=== PATIENT | female | born 1975 | race Caucasian/White ===

== ENCOUNTER 2018-12-02 17:18 | Observation (INO) ==
[2018-12-02 17:54] LABS: Urine Bilirubin Negative (NEGATIVE); Urine Blood Negative /ul (NEGATIVE); Urine Ketone Negative (NEGATIVE); Urine Nitrite Negative (NEGATIVE); Urine Protein Negative (NEGATIVE); Urine Specific Gravity 1.015 SP.GR. (1.005-1.010); Urine Urobilinogen Normal (NORMAL); Urine pH 7.5 pH (5.0-7.0)
[2018-12-02 18:03] LABS: Urine Appearance Clear (CLEAR); Urine Color Yellow; Urine RBC None Seen /hpf (0-5); Urine WBC TRACE /hpf (0-5)
[2018-12-02 18:04] LABS: Urine Bacteria 1+
--- NOTE | 2018-12-02 18:46 | ERNOTE ---
Abdominal HPI - Narrative Date of Service: 12/02/18 - General Chief Complaint: Abdominal Pain Time Seen by Provider: 12/02/18 18:37 Source: patient Exam Limitations: no limitations - Immun/Allergies/Home Medications Immunizatons: IMMUNIZATION HX Immunizations Up to Date Yes History of Influenza Vaccine Yes Hx Pneumococcal Vaccination No Allergies/Adverse Reactions: Allergies ciprofloxacin [From Cipro] Allergy (Verified 12/02/18 17:32) gives flu symptoms ciprofloxacin HCl [From Cipro] Allergy (Verified 12/02/18 17:32) gives flus symptoms Home Medications: HOME MEDICATIONS L norgest/E estradiol-E estrad 0.15 mg-30 mcg (84)/10 mcg(7) tabs,3mos 1 tab PO DAILY #91 tab 09/21/18 [Last Taken Unknown] - Pain Score Pain Score #1 Pain Score: 7 Abdominal Pain Onset Location: RLQ Pain Radiation: no radiation - History of Present Illness Narrative: The patient is a 43 year old female who presents for RLQ pain which has been present since yesterday. There are associated symptoms of nausea. The patient reports RLQ pain, 6/10. There are no alleviating factors. There are aggravating factors of activity. Previous treatments have included: none. The past medical history includes: kidney stone. The social history is negative. The patient has had no ill contacts. Patient reports that pain began yesterday and has had abdominal fullness since onset. Patient reports inability to sleep last night due to abdominal discomfort which has gradually worsened since onset. Patient states today increased pain and becoming intolerable with activity. Review of Systems - Review of Systems Constitutional: Present: fatigue. Absent: fever EYE: Present: no symptoms reported ENT: Present: no symptoms reported. Absent: ear pain, nasal drainage, sore throat Respiratory: Present: no symptoms reported. Absent: shortness of breath, cough Cardiology: Present: no symptoms reported. Absent: chest pain Gastrointestinal/Abdominal: Present: nausea, abdominal pain. Absent: vomiting, diarrhea Genitourinary: Present: no symptoms reported. Absent: frequency, dysuria, decreased urinary output Musculoskeletal: Present: no symptoms reported. Absent: back pain Skin: Present: no symptoms reported. Absent: rash Neurological: Present: no symptoms reported All Other Systems: All systems neg except as marked Medical History (Updated 12/02/18 @ 21:31 by ELSIE Kelly) UTI (urinary tract infection) (Resolved) Onset Date: 01/27/14 Tachycardia (Resolved) Onset Date: 01/24/17 30 day holter monitor WNL Kidney stone (Resolved) Onset Date: ~04/2006 Migraine headache (Chronic) Onset Date: Unknown Hair loss (Resolved) Onset Date: Unknown Cough (Resolved) Onset Date: 01/06/13 Laceration of fourth finger of left hand (Resolved) Onset Date: Unknown History of echocardiogram Onset Date: ~06/2018 Surgical History: Surgical History (Updated 08/13/18 @ 10:16 by Adrianna Valentin RN) [place] teeth extracted (Resolved) Onset Date: ~2015 2000 2015 S/P tubal ligation (Resolved) Onset Date: 09/01/05 S/P LASIK surgery (Resolved) Onset Date: ~11/2010 S/P (Resolved) Onset Date: ~2005 Family History: Family History (Updated 08/18/18 @ 14:13 by Adrianna Valentin RN) Mother Thyroid disease Colon polyp Father Kidney stone Brother Diabetes half brother Grandfather , age 92-prostate ca Cancer paternal-prostate cancer Grandmother Cancer maternal great grandmother-breast Social History: (Last Reviewed 12/02/18 @ 19:10 by ELSIE Kelly) Social History: group home: No Marital status: household members: spouse, children number of children: 2 current occupational status: employed 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 Highest education level completed: Doctoral degree Service: No Tobacco: Smoking Status: Never smoker Alcohol: alcohol intake: current alcohol intake frequency: holiday/special occasion Substance Use: substance use type: does not use Dietary Habits: caffeine: Yes Exercise: Physical activity functional status: normal ROM and activity frequency: 5-6 times per week Personal Safety: victim of physical abuse: No victim of emotional abuse: No Physical Exam - Physical Exam General Appearance: Present: wd/wn, alert, mild distress Head Exam: Present: normal inspection Eye Exam: Normal inspection: bilateral Neck: Present: normal inspection Respiratory: Present: no respiratory distress, normal breath sounds, no accessory muscle use, lungs clear Cardiovascular/Chest: Present: regular rate, rhythm, no murmur Gastrointestinal/Abdominal: Present: nondistended, soft, no organomegaly, tenderness - RLQ, abnormal bowel sounds - hypoactive, guarding - RLQ, rebound - RLQ, McBurney sign, Obturator sign, Psoas sign. Absent: mass Back Exam: Present: CVA tenderness (R) - referred pain to abdomen. Absent: CVA tenderness (L) Neurological Exam: Present: alert, oriented, normal mood/affect, no motor /sensory deficits Skin Exam: Present: normal color, warm/dry Progress - Date and Time Seen: Date and Time: 12/02/18 20:06 Elevation to WBC and CRP, RLQ abdominal pain, will proceed with CT to r/o appendicitis. 12/02/18 21:23 Contacted , instructed to admit patient and start on Mefoxin, will per form surgery at 0700 tomorrow. - Results and Orders Patient's Lab Results:: I have reviewed the patient's lab results. - Vital Signs Patient's Vital Signs:: I have reviewed the patient's vital signs. Vital Signs: Vital Signs 12/02/18 17:27 Temperature 36.1 C Pulse Rate 89 Respiratory Rate 16 Blood Pressure 95/68 O2 Sat by Pulse Oximetry 93 - CT/Ultrasound CT/Ultrasound Narrative: IMPRESSION: 1. Findings consistent with acute appendicitis. No fluid collection. No free intraperitoneal air. 2. Small amount of free pelvic fluid. 3. Hepatomegaly. Electronically signed by Jaye Moss D.O.. - Progress/Reassessment Chief Complaint: Abdominal Pain Progress:: Improved Departure Clinical Impression: Acute appendicitis Qualifiers: Acute appendicitis type: with localized peritonitis Appendicitis gangrene presence: unspecified whether gangrene present Appendicitis perforation presence: unspecified whether perforation present Appendicitis abscess presence: unspecified whether abscess present Qualified Code(s): K35.30 - Acute appendicitis with localized peritonitis, without perforation or gangrene - Departure Disposition: Still a patient Condition: Stable
[2018-12-02 18:53] LABS: Hematocrit 40.4 % (37.0-47.0); Hemoglobin 13.7 gm/dL (12.5-16.0); Mean Cell Volume 94.2 fl (78-100); Mean Corpuscular Hemoglobin 31.9 pg (27-31); Mean Corpuscular Hgb Conc 33.9 g/dl (32-36); Mean Platelet Volume 9.4 fl (8-12.5); Neutrophil # 13.5 K/mm3 (1.3-6.0); Neutrophil % 83.1 % (42-75.0); Platelet Count 280 K/mm3 (150-450); Red Blood Count 4.29 M/mm3 (4.2-5.4); Red Cell Distribution Width 11.9 % (11.5-14.0); White Blood Count 16.3 K/mm3 (4.0-10.5)
[2018-12-02] MEDS ORDERED: DIATRIZOATE MEGLUMINE, SODIUM 30 ML BTL PO ONE (18:58)
[2018-12-02 19:08] LABS: Albumin * 3.5 gm/dl (3.4-5.0); BUN/Creatinine Ratio 18.8 (9.0-21.6); Bilirubin, Total 0.3 mg/dL (0.0-1.1); Ca. Corrected For Albumin 8.8 mg/dL (8.4-10.2); Calcium * 8.7 mg/dL (7.9-10.9); Carbon Dioxide 27.4 mmol/L (24-32.6); Potassium 4.4 mmol/L (3.4-4.6); Total Protein 7.2 gm/dL (6.2-8.2)
[2018-12-02] MEDS ORDERED: ONDANSETRON HCL/PF 2 MG/ML VIAL IV ONE (21:02)
[2018-12-02] MEDS ORDERED: KETOROLAC TROMETHAMINE 30 MG/ML VIAL IV ONE (21:02)
[2018-12-02] MEDS ORDERED: NORMAL SALINE 1,000 ML IV PRN (21:33)
[2018-12-02] MEDS ORDERED: ONDANSETRON HCL/PF 2 MG/ML VIAL IV PRN (21:35)
[2018-12-02] MEDS ORDERED: CEFOXITIN SODIUM 2 GM in DEXTROSE 5 % IN WATER 100 ML IV ONE ×2 (22:00)
[2018-12-02] MEDS ORDERED: FLU VACC QS2019-20(6MOS UP)/PF 60 MCG/0.5 ML SYRINGE IM ONE (22:47)
[2018-12-02] MEDS: MORPHINE SULFATE 2 MG/ML DISP.SYRIN IV PRN (23:35)
[2018-12-03] MEDS ORDERED: HYDROcodone/ACETAMINOPHEN 1 EACH TABLET PO PRN (06:17)
[2018-12-03] MEDS ORDERED: IBUPROFEN 800 MG TABLET PO PRN (06:17)
--- NOTE | 2018-12-03 06:17 | HP ---
Chief Complaint - Chief Complaint Date of Service: 12/03/18 Time of Service: 06:12 Chief Complaint: acute appendicitis History of Present Illness: Monse is a pleasant 43-year-old female who developed abdominal pain the day before yesterday. She thought that the pain would get better if she went to sleep. She awoke and the pain continued to worsen. She has not had pain like this before. She went to the emergency room, she was found to have acute appendicitis. She has had nausea but no vomiting. She was admitted overnight for pain control and will be taken to the OR shortly for appendectomy. She does have a history of previous section x2. She developed an infection after her first . Medical History (Updated 12/02/18 @ 21:31 by ELSIE Kelly) UTI (urinary tract infection) (Resolved) Onset Date: 01/27/14 Tachycardia (Resolved) Onset Date: 01/24/17 30 day holter monitor WNL Kidney stone (Resolved) Onset Date: ~04/2006 Migraine headache (Chronic) Onset Date: Unknown Hair loss (Resolved) Onset Date: Unknown Cough (Resolved) Onset Date: 01/06/13 Laceration of fourth finger of left hand (Resolved) Onset Date: Unknown History of echocardiogram Onset Date: ~06/2018 Surgical History: Surgical History (Updated 08/13/18 @ 10:16 by Adrianna Valentin RN) [place] teeth extracted (Resolved) Onset Date: ~2015 2000 2015 S/P tubal ligation (Resolved) Onset Date: 09/01/05 S/P LASIK surgery (Resolved) Onset Date: ~11/2010 S/P (Resolved) Onset Date: ~2005 Family History: Family History (Updated 08/18/18 @ 14:13 by Adrianna Valentin RN) Mother Thyroid disease Colon polyp Father Kidney stone Brother Diabetes half brother Grandfather , age 92-prostate ca Cancer paternal-prostate cancer Grandmother Cancer maternal great grandmother-breast Social History: (Last Reviewed 12/02/18 @ 22:12 by Yaneli Kenny RN) Social History: intermediate: No Marital status: household members: spouse, children number of children: 2 current occupational status: employed 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 Highest education level completed: Doctoral degree Service: No Tobacco: Smoking Status: Never smoker Alcohol: alcohol intake: current alcohol intake frequency: holiday/special occasion Substance Use: substance use type: does not use Dietary Habits: caffeine: Yes Exercise: Physical activity functional status: normal ROM and activity frequency: 5-6 times per week Personal Safety: victim of physical abuse: No victim of emotional abuse: No Review Of Systems (GEN) - Review of Systems Generalized/Overall Review: Present: Malaise EENTM: Present: No Symptoms Reported Respiratory: Present: No Symptoms Reported Cardiac: Present: No Symptoms Reported Abdominal: Present: Nausea, Abdominal Pain Genitourinary: Present: No Symptoms Reported Musculoskeletal: Present: No Symptoms Reported Neurological: Present: No Symptoms Reported Skin: Present: No Symptoms Reported Endocrine: Present: No Symptoms Reported Immunizations: IMMUNIZATION HX Immunizations Up to Date Yes History of Influenza Vaccine Yes Hx Pneumococcal Vaccination No Allergies/Adverse Reactions: Allergies Allergy/AdvReac Type Severity Reaction Status Date / Time ciprofloxacin [From Cipro] Allergy gives flu Verified 12/02/18 22:13 symptoms ciprofloxacin HCl Allergy gives flus Verified 12/02/18 22:13 [From Cipro] symptoms Home Medications: HOME MEDICATIONS L norgest/E estradiol-E estrad 0.15 mg-30 mcg (84)/10 mcg(7) tabs,3mos 1 tab PO DAILY #91 tab 09/21/18 [Last Taken Unknown] Exam - Exam Vital Signs: Vital Signs - Last Taken Temp 37 C 12/03/18 05:02 Pulse 83 12/03/18 05:02 Resp 14 12/03/18 05:02 BP 95/47 12/03/18 05:02 Pulse Ox 97 12/03/18 05:02 Constitutional: Present: Alert, Oriented x3, Cooperative ENT Exam: Present: hearing grossly normal Eye Exam: bilateral eye: normal inspection Neck: Present: supple Breasts: Present: Exam deferred Respiratory: Present: lungs clear, normal breath sounds Cardiovascular/Chest: Present: regular rate, rhythm Abdomen: Present: soft, nontender, hernia - Umbilical. Absent: guarding, rigidity /Rectal: Present: Exam deferred Extremity: Present: normal range of motion Skin Exam: Present: normal color Neurologic: Present: working supervisor II-XII nml as tested Appearance: Present: appropriate appearance Eye contact: Present: cooperative, good eye contact Thoughts: Present: normal thought pattern Diagnostic Studies: Abnormal Lab Results 12/02/18 12/02/18 12/02/18 Range/Units 17:39 18:15 18:45 WBC (4.0-10.5) K/mm3 MCH (27-31) pg Immature Gran % (Auto) (0.001-0.429) % Immature Gran # (Auto) (0.000-0.0310) K/mm3 Neutrophils % (42-75.0) % Lymphocytes % (20-51) % Neutrophils # (1.3-6.0) K/mm3 ALT 9 L (19-67) U/L C-Reactive Prot, Quant 10.0 H (0.0-0.9) mg/dL Ur Leukocyte Esterase 25 H (NEGATIVE) /ul Urine WBC Trace H (0-5) /hpf Ur Epithelial Cells 10-25 H (0-5) /hpf Urine Bacteria 1+ H (NONE) 12/02/18 Range/Units 18:50 WBC 16.3 H (4.0-10.5) K/mm3 MCH 31.9 H (27-31) pg Immature Gran % (Auto) 0.50 H (0.001-0.429) % Immature Gran # (Auto) 0.08 H (0.000-0.0310) K/mm3 Neutrophils % 83.1 H (42-75.0) % Lymphocytes % 10.0 L (20-51) % Neutrophils # 13.5 H (1.3-6.0) K/mm3 ALT (19-67) U/L C-Reactive Prot, Quant (0.0-0.9) mg/dL Ur Leukocyte Esterase (NEGATIVE) /ul Urine WBC (0-5) /hpf Ur Epithelial Cells (0-5) /hpf Urine Bacteria (NONE) Laboratory Results WBC 16.3 K/mm3 (4.0-10.5) H 12/02/18 18:50 RBC 4.29 M/mm3 (4.2-5.4) 12/02/18 18:50 Hgb 13.7 gm/dL (12.5-16.0) 12/02/18 18:50 Hct 40.4 % (37.0-47.0) 12/02/18 18:50 MCV 94.2 fl (78-100) 12/02/18 18:50 MCH 31.9 pg (27-31) H 12/02/18 18:50 MCHC 33.9 g/dl (32-36) 12/02/18 18:50 RDW 11.9 % (11.5-14.0) 12/02/18 18:50 Plt Count 280 K/mm3 (150-450) 12/02/18 18:50 MPV 9.4 fl (8-12.5) 12/02/18 18:50 Immature Gran % (Auto) 0.50 % (0.001-0.429) H 12/02/18 18:50 Immature Gran # (Auto) 0.08 K/mm3 (0.000-0.0310) H 12/02/18 18:50 83.1 % (42-75.0) H 12/02/18 18:50 10.0 % (20-51) L 12/02/18 18:50 5.5 % (0.0-9) 12/02/18 18:50 0.7 % (0.0-3.0) 12/02/18 18:50 0.2 % (0.0-1.0) 12/02/18 18:50 Nucleated RBC % 0.0 k/mm3 (0-1) 12/02/18 18:50 13.5 K/mm3 (1.3-6.0) H 12/02/18 18:50 1.63 k/mm3 (1.5-3.5) 12/02/18 18:50 0.9 k/mm3 (0.0-1.0) 12/02/18 18:50 0.1 k/mm3 (0.0-0.7) 12/02/18 18:50 Absolute Basophils 0.0 k/mm3 (0.0-0.1) 12/02/18 18:50 Sodium 139 mmol/L (132-142) 12/02/18 18:45 139 mmol/L (130-142) 12/02/18 18:45 Potassium 4.4 mmol/L (3.4-4.6) 12/02/18 18:45 Chloride 104 mmol/L (97-106) 12/02/18 18:45 Carbon Dioxide 27.4 mmol/L (24-32.6) 12/02/18 18:45 12.0 mmol/L (6.8-13.8) 12/02/18 18:45 BUN 16 mg/dL (3-23) 12/02/18 18:45 0.85 mg/dL (0.4-1.4) 12/02/18 18:45 Est GFR (Non-Af Amer) 78 mL/min (60-130) 12/02/18 18:45 18.8 (9.0-21.6) 12/02/18 18:45 94 mg/dL (70-110) 12/02/18 18:45 Calcium 8.7 mg/dL (7.9-10.9) 12/02/18 18:45 Calcium Adj for Albumin 8.8 mg/dL (8.4-10.2) 12/02/18 18:45 0.3 mg/dL (0.0-1.1) 12/02/18 18:45 AST 12 U/L (0-48) 12/02/18 18:45 ALT 9 U/L (19-67) L 12/02/18 18:45 52 U/L (50-170) 12/02/18 18:45 C-Reactive Prot, Quant 10.0 mg/dL (0.0-0.9) H 12/02/18 18:15 7.2 gm/dL (6.2-8.2) 12/02/18 18:45 3.5 gm/dl (3.4-5.0) 12/02/18 18:45 Amylase 40 U/L (25-115) 12/02/18 18:45 112 U/L (73-393) 12/02/18 18:45 Yellow 12/02/18 17:39 Clear (CLEAR) 12/02/18 17:39 7.5 pH (5.0-7.0) 12/02/18 17:39 Ur Specific [place] 1.015 SP.GR. (1.005-1.010) 12/02/18 17:39 Negative mg/dL (NEGATIVE) 12/02/18 17:39 Negative mg/dL (NEGATIVE) 12/02/18 17:39 Negative mg/dL (NEGATIVE) 12/02/18 17:39 Negative /ul (NEGATIVE) 12/02/18 17:39 Negative (NEGATIVE) 12/02/18 17:39 Negative mg/dl (NEGATIVE) 12/02/18 17:39 Normal EU/dl (NORMAL) 12/02/18 17:39 Ur Leukocyte Esterase 25 /ul (NEGATIVE) H 12/02/18 17:39 None seen /hpf (0-5) 12/02/18 17:39 Trace /hpf (0-5) H 12/02/18 17:39 Ur Epithelial Cells 10-25 /hpf (0-5) H 12/02/18 17:39 1+ (NONE) H 12/02/18 17:39 Culture to follow 12/02/18 17:39 Urine HCG, Qual Negative (NEGATIVE) 12/02/18 18:45 Assessment/Plan - Narrative Narrative: We will plan to go to the OR for laparoscopic possible open appendectomy. Risks and benefits of the procedure were discussed with the patient and she voices understanding. She has no questions or concerns. - Assessment/Plan (1) Acute appendicitis Problem: Acute Qualifiers: Acute appendicitis type: with localized peritonitis Appendicitis gangrene presence: unspecified whether gangrene present Appendicitis perforation presence: unspecified whether perforation present Appendicitis abscess presence: unspecified whether abscess present Qualified Code(s): K35.30 - Acute appendicitis with localized peritonitis, without perforation or gangrene
[2018-12-03] MEDS ORDERED: POTASSIUM CHLORIDE 20 MEQ in DEXTROSE 5%-0.5 NORMAL SALINE 990 ML IV SCH (06:30)
[2018-12-03] MEDS: MORPHINE SULFATE 2 MG/ML DISP.SYRIN IV PRN ×3 (06:40→11:02)
--- NOTE | 2018-12-03 06:51 | ANES ---
Anesthesia Pre Procedure Eval Vitals/Labs: Last Vital Signs Temp 37 C 12/03/18 05:02 Pulse 83 12/03/18 05:02 Resp 14 12/03/18 05:02 BP 95/47 12/03/18 05:02 Pulse Ox 97 12/03/18 05:02 HOME MEDICATIONS L norgest/E estradiol-E estrad 0.15 mg-30 mcg (84)/10 mcg(7) tabs,3mos 1 tab PO DAILY #91 tab 09/21/18 [Last Taken Unknown] Allergies/Adverse Reactions: Allergies Allergy/AdvReac Type Severity Reaction Status Date / Time ciprofloxacin [From Cipro] Allergy gives flu Verified 12/02/18 22:13 symptoms ciprofloxacin HCl Allergy gives flus Verified 12/02/18 22:13 [From Cipro] symptoms - Planned Procedure Planned Procedure: ACUTE APPENDICITIS Medication List Reviewed:: Yes Allergies Verified: Yes Medical History (Updated 12/03/18 @ 06:17 by Ale Purdy DO) UTI (urinary tract infection) (Resolved) Onset Date: 01/27/14 Tachycardia (Resolved) Onset Date: 01/24/17 30 day holter monitor WNL Kidney stone (Resolved) Onset Date: ~04/2006 Migraine headache (Chronic) Onset Date: Unknown Hair loss (Resolved) Onset Date: Unknown Cough (Resolved) Onset Date: 01/06/13 Laceration of fourth finger of left hand (Resolved) Onset Date: Unknown History of echocardiogram Onset Date: ~06/2018 Surgical History (Updated 12/03/18 @ 06:17 by Ale Purdy DO) [place] teeth extracted (Resolved) Onset Date: ~2015 2000 2015 S/P tubal ligation (Resolved) Onset Date: 09/01/05 S/P LASIK surgery (Resolved) Onset Date: ~11/2010 S/P (Resolved) Onset Date: ~2005 Family History (Updated 08/18/18 @ 14:13 by Adrianna Valentin RN) Mother Thyroid disease Colon polyp Father Kidney stone Brother Diabetes half brother Grandfather , age 92-prostate ca Cancer paternal-prostate cancer Grandmother Cancer maternal great grandmother-breast - Family Anesthesia History Family History:: no untoward family reactions to anesthesia, no familial b leeding tendencies, no family history of clotting disorders, no family history of premature - Airway/Neck/Teeth Within Normal Limits:: Yes Teeth Condition: intact Neck Exam: full range of motion Mallampatti Score: 2 Thyromental (T-M) distance: > 6 cm Mandibulo Hyoid distance: > 3 cm - Respiratory Respiratory Physical: lungs clear Smoking Status: Never smoker Sleep Apnea currently treated: No Sleep Apnea by current assessment: No - Cardiovascular Tolerate Activity: Good Heart Sounds: S1 & S2, Regular, Murmur - Anesthesia Assessment and Plan ASA Class: PS, II, E Anesthesia Type Plan: General ET
[2018-12-03] MEDS ORDERED: CEFOXITIN SODIUM 2 GM in DEXTROSE 5 % IN WATER 100 ML IV ONE ×2 (07:09)
[2018-12-03] MEDS ORDERED: RINGER'S SOLUTION,LACTATED 1,000 ML IV PRN (07:43)
[2018-12-03] MEDS ORDERED: BUPIVACAINE HCL 50 ML VIAL IJ ONE (07:51)
--- NOTE | 2018-12-03 08:06 | OR ---
Operative Report - Dictated Report Narrative: Date of Service: 12/03/18 Procedure: laparoscopic appendectomy Pre-procedure diagnosis: acute appendicitis Post-procedure diagnosis: same Surgeon: Dr. Ale Purdy Anesthesia: general Indication for procedure: Monse is a pleasant 43-year-old female with acute appendicitis. Description of procedure: After appropriate informed consent was obtained patient was taken to the operating room, placed in the supine position. General anesthesia was achieved. The RN placed a Cadena catheter. The patient was prepped and draped in the usual sterile fashion. A 5 mm periumbilical incision was made, hemostat was used to dissect down to the fascia. A Veress needle was inserted, a saline drop test was performed which was satisfactory. The abdomen was insufflated to 15 mmHg. A 5mm blunt trocar was placed at the umbilicus. The camera was inserted, there was no evidence of a trocar injury. A 12 mm trocar was placed in the left lower quadrant of the abdomen. A 5 mm trocar was placed in the suprapubic region. The patient was placed in a head down, rotated left position, to facilitate exposure. The appendix was identified, it appeared consistent with acute appendicitis. A window was made in the mesoappendix. The 45 mm echelon stapler with the white load was placed across the base of the appendix. There was good hemostasis. The echelon 45 mm stapler with a white load was then placed across the mesoappendix. There was good hemostasis. The appendix was removed through an Endo Catch bag. The abdomen was inspected and the staple lines were intact, with good hemostasis. The remainder of the abdomen was inspected and was satisfactory. The 12 mm trocar site was closed with an 0 Vicryl suture using a PMI device. The abdomen was desufflated. Local anesthetic was injected. The incisions were closed with inverted interrupted 4- 0 Monocryl sutures. Mastisol and Steri-Strips were applied. The patient tolerated the procedure well and was transported to the PACU in satisfactory condition. Estimated blood loss: minimal Complications: none Specimens to pathology: appendix Disposition: The patient will be admitted to the floor for observation.
--- NOTE | 2018-12-03 08:12 | ANES ---
Post Anesthesia Discharge - Transfer of Care Transfer of Care handoff given to nurse: Yes - Discharge from PACU Discharge from PACU when meets criteria: Yes - Comfortble
--- NOTE | 2018-12-03 08:29 | ANES ---
Post Anesthesia Assessment - Vital Signs Vitals: Last Vital Signs Temp 36.8 C 12/03/18 08:05 Pulse 69 12/03/18 08:15 Resp 14 12/03/18 08:15 BP 108/61 12/03/18 08:15 Pulse Ox 99 12/03/18 08:15 Airway Patency: Normal - Mental Status Level Of Consciousness: Awake, Drowsy - Pain Level Pain Score: 0 - N/V Assessment Nausea/Vomiting Presence: None Dehydration:: No
[2018-12-03] MEDS ORDERED: FLU VACC QS2019-20(6MOS UP)/PF 60 MCG/0.5 ML SYRINGE IM ONE (09:00)
--- NOTE | 2018-12-03 10:46 | DS ---
(1) Acute appendicitis Problem: Acute Qualifiers: Acute appendicitis type: with localized peritonitis Appendicitis gangrene presence: without gangrene Appendicitis perforation presence: without perforation Appendicitis abscess presence: unspecified whether abscess present Qualified Code(s): K35.30 - Acute appendicitis with localized peritonitis, without perforation or gangrene Description of Stay: Monse is a pleasant 43-year-old female who presents with acute appendicitis. This is CT proven. She was admitted overnight. She was taken to the OR for laparoscopic appendectomy which was uneventful. She is recovering well. Procedures Performed: see notes below List Procedures: acute appendectomy Results and Findings: Pending Mircobiology Results 12/02/18 18:00 Urine,Voided Urine Culture - Preliminary Beta Hemolytic Strep Lab Pending Results 12/02/18 17:39: Urine Color Yellow, Urine Appearance Clear, Urine pH 7.5, Ur Specific [place] 1.015, Urine Protein Negative, Urine Glucose (UA) Negative, Urine Ketones Negative, Urine Blood Negative, Urine Nitrate Negative, Urine Bilirubin Negative, Urine Urobilinogen Normal, Ur Leukocyte Esterase 25 H, Urine RBC None seen, Urine WBC Trace H, Ur Epithelial Cells 10-25 H, Urine Bacteria 1+ H, Urine Culture Comments Culture to follow 12/02/18 18:15: C-Reactive Prot, Quant 10.0 H 12/02/18 18:45: Sodium 139, Plasma Sodium 139, Potassium 4.4, Chloride 104, Carbon Dioxide 27.4, Anion Gap 12.0, BUN 16, Creatinine 0.85, Est GFR (Non-Af Amer) 78, BUN/Creatinine Ratio 18.8, Random Glucose 94, Calcium 8.7, Calcium Adj for Albumin 8.8, Total Bilirubin 0.3, AST 12, ALT 9 L, Alkaline Phosphatase 52, Total Protein 7.2, Albumin 3.5, Amylase 40, Lipase 112 12/02/18 18:45: Urine HCG, Qual Negative 12/02/18 18:50: WBC 16.3 H, RBC 4.29, Hgb 13.7, Hct 40.4, MCV 94.2, MCH 31.9 H, MCHC 33.9, RDW 11.9, Plt Count 280, MPV 9.4, Immature Gran % (Auto) 0.50 H, Immature Gran # (Auto) 0.08 H, Neutrophils % 83.1 H, Lymphocytes % 10.0 L, Monocytes % 5.5, Eosinophils % 0.7, Basophils % 0.2, Nucleated RBC % 0.0, Neutrophils # 13.5 H, Lymphocytes # 1.63, Monocytes # 0.9, Eosinophils # 0.1, Absolute Basophils 0.0 12/03/18 07:40: Pathology Specimen Spec to path Discharge Location: Home Disposition: Home self-care Condition: Stable Discharge Activity: Activity as tolerated Discharge Diet: General/regular food Referrals: Lauren Galdamez MD [Primary Care Provider] - Prescriptions (Any new or edited meds): HYDROcodone/ACETAMINOPHEN [Story 5-325] 2 ea PO Q6H PRN #20 tab PRN Reason: Moderate Pain (Pain Scale 4-6) Complete Home Medications List: Complete Home Medication List: L norgest/E estradiol-E estrad 0.15 mg-30 mcg (84)/10 mcg(7) tabs,3mos 1 tab PO DAILY #91 tab 09/21/18 HYDROcodone/ACETAMINOPHEN [Story 5-325] 2 ea PO Q6H PRN #20 tab 12/03/18
[2018-12-03 16:13] VITALS: BP 116/74
== END 2018-12-03 15:20 | disposition home or self-care (01) ==
LOC: MS 17:18 → ER 17:18 → MS 22:10
PROVIDERS: ADMIT Surgery; ATTEND Surgery
CPT/HCPCS: 36415; 74177; 80053; 81001; 82150; 83690; 84703; 85025; 86140; 87077; 87086; 87186; 88307; 90686; 99285; G0008; G0378; J2405; Q9963; Q9967